=== PATIENT | female | born 1980 | race African-American/Black ===

== ENCOUNTER 2016-06-09 20:11 | Emergency (ER) | payer OTHER ==
[~2016-06-09] VITALS: Ht 172.7 cm; Wt 70.8 kg
[~2016-06-09 20:11] MED LIST: ACET50TA PO; BENA25TA4 PO; BISA5TAB7 PO; DOCU100C PO; DOCU10CA PO; FAMO20TA PO; FLON0.054; GABA-279 PO; IBUP800T23 PO; LEVS0.123 PO; NEXI20CA PO; PANT40TA2 PO; PEG1POW PO; PERCOCET PO; PRENTAB40 PO; RANI15TA PO
[2016-06-10 00:06] VITALS: BP 129/87
[2016-06-10] MEDS ORDERED: NORCO, ANEXSIA 5/325MG TABLET (HYDROcodone/ACETAMINOPHEN) PO ONE (00:15)
[2016-06-10] MEDS ORDERED: VICO5TAB16 PO (00:48)
--- NOTE | 2016-06-10 09:08 | REP ---
Left foot series: Four views. History: Pain. Findings: Four views of the left foot demonstrate overall normal mineralization. Bones, joints and soft tissues are radiographically unremarkable. No fracture or subluxation is seen. Impression: Negative left foot radiographs. Signed by Uziel Flynn MD 06/10/2016 02:47 P
== END 2016-06-10 00:59 | disposition home or self-care (01) ==
LOC: M ED 21:59
DX: S90.32XA Contusion of left foot, initial encounter (principal); X58.XXXA Exposure to other specified factors, initial encounter; Y92.019 Unspecified place in single-family (private) house as the place of occurrence of the external cause; Y93.89 Activity, other specified; Y99.8 Other external cause status; K21.9 Gastro-esophageal reflux disease without esophagitis; Z79.899 Other long term (current) drug therapy

== ENCOUNTER 2017-02-18 15:09 | Emergency (ER) | payer OTHER ==
[~2017-02-18] VITALS: Ht 172.7 cm; Wt 72.7 kg
[~2017-02-18 15:09] MED LIST changes: +ACET30TAB PO; +BENT20TA PO; -DOCU100C PO; +DOCU100C16 PO; +IBUP1TAB7 PO; -IBUP800T23 PO; +PRIL20CA9 PO; +VICO5TAB16 PO; +ZOFR4TAB3 PO
[2017-02-18] MEDS ORDERED: METOCLOPRAMIDE INJ 10MG/2ML VIAL (J2765) IV ONE (16:45)
[2017-02-18] MEDS ORDERED: NS 1,000 ML IV ONE (16:45)
[2017-02-18] MEDS ORDERED: PANTOPRAZOLE 40MG INJ (PROTONIX) (C9113) IV ONE (16:45)
[2017-02-18] MEDS ORDERED: MORPHINE 4 MG/ML 1ML SYRINGE IV PRN (16:45)
[2017-02-18] MEDS ORDERED: GASTROGRAFIN SOLUTION 30ML (Q9963) As Ordered ONE (17:08)
[2017-02-18] MEDS ORDERED: GASTROGRAFIN SOLUTION 30ML PO ONE (17:10)
[2017-02-18] MEDS ORDERED: diphenhydrAMINE INJ 50MG/ML VIAL (J1200) IV ONE (17:30)
[2017-02-18] MEDS ORDERED: GASTROGRAFIN SOLUTION 30ML (Q9963) PO ONE (17:40)
[2017-02-18] MEDS ORDERED: ISOVUE-370 76% 100ML VIAL (Q9967) As Ordered ONE (18:22)
[2017-02-18 18:43] LABS: BASO # 0.1 10^3/uL (0.0-0.2); BASO % 0.8 % (0.0-1.0); EOS # 0.4 10^3/uL (0.0-0.50); EOS % 4.8 % (0.0-3.0); IMMATURE GRANULOCYTE % 0.7 % (0-0); LYMPH # 1.6 10^3/uL (1.5-4.5); LYMPH % 19.3 % (24.0-44.0); MEAN CORPUSCULAR HEMOGLOBIN 29.9 pg (27.0-33.0); MEAN CORPUSCULAR HGB CONC 33.6 g/dl (32.0-36.5); MEAN CORPUSCULAR VOLUME 89.1 fl (80.0-96.0); MONO # 0.6 10^3/uL (0.0-0.8); NEUTROPHILS # 5.6 10^3/uL (1.8-7.7); NEUTROPHILS % 67.4 % (36.0-66.0); RED CELL DISTRIBUTION WIDTH 12.1 % (11.5-14.5); WHITE BLOOD COUNT 8.3 10^3/uL (4.0-10.0)
[2017-02-18 18:52] LABS: PLT CLUMPS? POS FLAG; POS COUNT POS FLAG
[2017-02-18 18:54] LABS: PLATELET COUNT, AUTOMATED 221 10^3/uL (150-450)
[2017-02-18 19:05] LABS: ALBUMIN 3.9 GM/DL (3.2-5.2); ALBUMIN/GLOBULIN RATIO 1.11 (1.00-1.93); ALKALINE PHOSPHATASE 80 U/L (45-117); ALT/SGPT 20 U/L (12-78); ANION GAP 9 MEQ/L (8-16); AST/SGOT 27 U/L (7-37); BILIRUBIN,DIRECT < 0.1 MG/DL (0.0-0.2); BILIRUBIN,TOTAL 0.3 MG/DL (0.2-1.0); BLOOD UREA NITROGEN 11 MG/DL (7-18); CALCIUM LEVEL 8.8 MG/DL (8.5-10.1); CARBON DIOXIDE LEVEL 23 MEQ/L (21-32); CHLORIDE LEVEL 111 MEQ/L (98-107); CREATININE FOR GFR 1.01 MG/DL (0.55-1.02); GLOMERULAR FILTRATION RATE > 60.0 (>60); GLUCOSE, FASTING 84 MG/DL (70-105); POTASSIUM SERUM 4.5 MEQ/L (3.5-5.1); SODIUM LEVEL 143 MEQ/L (136-145); TOTAL PROTEIN 7.4 GM/DL (6.4-8.2)
--- NOTE | 2017-02-18 19:20 | REPUSA ---
CLINICAL HISTORY: Abdominal pain and constipation. COMPARISON: Correlation is made with non-contrast study dated 02/14/2017. TECHNIQUE: Multiple axial, coronal, sagittal CT images were obtained through the abdomen and pelvis after administration of oral and intravenous contrast material. COMMENTS: The liver is of uniform attenuation without mass or defect. There is no intra or extrahepatic biliar y ductal dilatation. The spleen is normal. The patient is status post cholecystectomy. The pancrea s is of normal contour and attenuation characteristics. There is no evidence of adrenal mass. Both kidneys demonstrate prompt and equal nephrograms. The kidneys are normal in size, shape and con figuration. There is no evidence of renal or ureteral mass. No renal or ureteral calculi are identi fied. There is no hydroureter or hydronephrosis. No evidence for appendicitis. There is no bowel wall thickening. No evidence for small or large bow el obstruction. Large amount of fecal material is noted throughout the colon compatible with constip ation. No definite evidence of fecal impaction. There is no evidence of abdominal ascites or lympha denopathy. There is no evidence of intrinsic or extrinsic bladder mass. There is no pelvic lymphadenopathy. IUD is seen in place. Small amount of fluid is present in the pelvic cul-de-sac. 15 mm cyst is pres ent in the right ovary. The left ovary is unremarkable. Images of the lung bases show no evidence of pleural or parenchymal mass. There are no pleural effus ions. The bony structures are free of lytic or blastic lesions. IMPRESSION: 1. Large amount of fecal material throughout the colon compatible with constipation. No definite ev idence of fecal impaction. 2. The patient is status post cholecystectomy. 3. IUD is seen in place. 4. Small amount of fluid in the pelvic cul-de-sac. 5. Right ovarian cyst.
[2017-02-18] MEDS ORDERED: MILKSUS PO (20:14)
[2017-02-18] MEDS ORDERED: MIRA3350 PO (20:14)
[2017-02-18 20:22] VITALS: BP 124/64
== END 2017-02-18 20:35 | disposition home or self-care (01) ==
LOC: M ED 15:09
DX: K59.00 Constipation, unspecified (principal); N83.201 Unspecified ovarian cyst, right side; K58.9 Irritable bowel syndrome, unspecified; K21.9 Gastro-esophageal reflux disease without esophagitis; Z79.899 Other long term (current) drug therapy; Z88.8 Allergy status to other drugs, medicaments and biological substances
CPT/HCPCS: 36415; 74177; 80048; 80076; 81001; 83605; 83690; 85025; 96374; 96375; 99284; C9113; J1200; J2765; Q9963; Q9967

== ENCOUNTER 2017-05-19 08:14 | Emergency (ER) | payer OTHER ==
[2017-05-19] MEDS: NORCO, ANEXSIA 5/325MG TABLET (HYDROcodone/ACETAMINOPHEN) PO ×2 (09:18→10:17)
== END 2017-05-19 10:24 | disposition home or self-care (01) ==
LOC: M ED 08:14
DX: M25.512 Pain in left shoulder (principal); K21.9 Gastro-esophageal reflux disease without esophagitis; K58.9 Irritable bowel syndrome, unspecified; Z79.899 Other long term (current) drug therapy; Z98.890 Other specified postprocedural states
CPT/HCPCS: 73030

== ENCOUNTER 2017-08-09 12:30 | Day surgery (SDC) | payer OTHER ==
[2017-08-09] MEDS ORDERED: PROPOFOL 200 MG/20 ML VIAL As Ordered ×2 (12:41→13:45)
[2017-08-09] MEDS ORDERED: LIDOCAINE 2% INJ 100 MG/5 ML SDV (FOR ANES.) As Ordered (12:41)
[2017-08-09] MEDS: NS 1,000 ML IV (12:45)
== END 2017-08-09 14:29 | disposition home or self-care (01) ==
LOC: M OPP 12:30
DX: R19.4 Change in bowel habit (principal); K63.89 Other specified diseases of intestine; K64.8 Other hemorrhoids; K58.9 Irritable bowel syndrome, unspecified; K21.9 Gastro-esophageal reflux disease without esophagitis; K29.70 Gastritis, unspecified, without bleeding; Z79.899 Other long term (current) drug therapy; Z80.0 Family history of malignant neoplasm of digestive organs
CPT/HCPCS: 45380